=== PATIENT | female | born 1950 | race African-American/Black ===

== ENCOUNTER 2018-11-18 08:38 | Emergency (ER) | payer OTHER ==
--- OUTSIDE RECORDS SUMMARY | 2018-11-18 08:42 | XMS REPORT | Summary of Care ---
Author Author [facility] Organization [facility] Address Unknown Phone Unavailable Encounter ROBERT Kovacs(SCOTT) [id number] Date(s): 11/20/15 - 11/20/[address] [facility] [address], [place], [place] [address]- [phone] Discharge Diagnosis: Bacterial pneumonia Discharge Disposition: Home Attending Physician: Eduardo Pena MD Vital Signs Most recent to 1 2 oldest [Reference Range]: Height 162.56 cm (11/20/15 6:59 PM) Temperature Oral 98.6 DegF 99.0 DegF [96.4-99.1 DegF] (11/20/15 9:16 PM) (11/20/15 6:59 PM) Blood Pressure 116/76 mmHg 140/84 mmHg [90-140/60-90 mmHg] (11/20/15 9:16 PM) (11/20/15 6:59 PM) Respiratory Rate 18 BRMIN 18 BRMIN [14-20 BRMIN] (11/20/15 9:16 PM) (11/20/15 6:59 PM) Peripheral Pulse 68 bpm 76 bpm Rate [60-100 bpm] (11/20/15 9:16 PM) (11/20/15 6:59 PM) Weight 122.727 kg (11/20/15 6:59 PM) Body Mass Index 46.44 m2 (11/20/15 6:59 PM) Problem List No data available for this section Allergies, Adverse Reactions, Alerts Substance Reaction Severity Status codeine Active E-Mycin Active HYDROcodone-pseudoephedri Active ne Ultram Active Medications levalbuterol 1.25 mg, Route: NEB, Drug form: SOLN, ONCE, Dosing Weight 122.727, kg, Priority: STAT, Start date: 11/20/15 19:17:00 CDT, Stop date: 11/20/15 19:17:00 CDT Start Date: 11/20/15 Stop Date: 11/20/15 Status: Completed Levaquin 500 mg oral tablet 500 mg=1 tab, PO, Q24H, X 10 day, # 10 tab, 0 Refill(s) Start Date: 11/20/15 Stop Date: 11/30/15 Status: Ordered Proventil HFA 90 mcg/inh inhalation aerosol with adapter 2 puff, INHALER, QID, PRN for wheezing, # 25 gm, 0 Refill(s) Start Date: 11/20/15 Status: Ordered Rocephin 1 gm, Route: IM, Drug form: PDR/INJ, ONCE, Dosing Weight 122.727, kg, Priority: STAT, Start date: 11/20/15 20:21:00 CDT, Stop date: 11/20/15 20:21:00 CDT Notes: (Same As: Rocephin).Use with 100 mL NS and infuse over 30 min MEDICA TION WASTE Product Size: 1000 mgProduct Wasted: ___ mg Start Date: 11/20/15 Stop Date: 11/20/15 Status: Completed Results VIRAL - SEROLOGY Most recent to 1 oldest [Reference Range]: Influ A [Negative] Negative (11/20/15 7:40 PM) Influ B [Negative] Negative (11/20/15 7:40 PM) Immunizations No data available for this section Procedures No data available for this section Social History Social History Type Response Smoking Status Never smoker; Exposure to Tobacco Smoke None; Cigarette Smoking Last 365 Days No; Reg Smoking Cessation Counseling No Assessment and Plan No data available for this section
--- OUTSIDE RECORDS SUMMARY | 2018-11-18 08:42 | XMS REPORT | Continuity of Care Document ---
Author Author [facility] Address Unknown Phone Unavailable Problems Problem Status Onset Date Classification Date Reported Comments Source Discharge Diagnosis: Bacterial pneumonia 11/20/2015 11/23/2015 [facility] COUGH AND COLD BODY ACHES Active 11/20/2015 [facility] Medications Medication Details Route Status Patient Instructions Ordering Provider Order Date Source 200 ACTUAT Albuterol 0.09 MG/ACTUAT Metered Dose Inhaler [Proventil] 2 puff, INHALER, QID, PRN for wheezing, # 25 gm, 0 Refill(s) Active 11/21/2015 [facility] Levofloxacin 500 MG Oral Tablet [Levaquin] 500 mg=1 tab, PO, Q24H, X 10 day, # 10 tab, 0 Refill(s) Active 11/21/2015 [facility] Rocephin 1 gm, Route: IM, Drug form: PDR/INJ, ONCE, Dosing Weight 122.727, kg, Priority: STAT, Start date: 11/20/15 20:21:00 CDT, Stop date: 11/20/15 20:21:00 CDTNotes: (Same As: Rocephin). Use with 100 mL NS and infuse over 30 min MEDICATION WASTE Product Size: 1000 mg Product Wasted: ___ mg Inactive 11/21/2015 [facility] Levalbuterol 1.25 mg, Route: NEB, Drug form: SOLN, ONCE, Dosing Weight 122.727, kg, Priority: STAT, Start date: 11/20/15 19:17:00 CDT, Stop date: 11/20/15 19:17:00 CDT Inactive 11/21/2015 [facility] Allergies, Adverse Reactions, Alerts Substance Category Reaction Severity Reaction type Status Date Reported Comments Source codeine Assertion Drug allergy Active [facility] E-Mycin Assertion Drug allergy Active [facility] HYDROcodone-pseudoephedrine Assertion Drug allergy Active [facility] Ultram Assertion Drug allergy Active [facility] Immunizations Immunization Date Given Site Status Last Updated Comments Source Results Order Name Results Value Reference Range Date Interpretation Comments Source VIRAL - SEROLOGY Influ B Negative (11/20/15 7:40 PM) Negative 11/21/2015 [facility] VIRAL - SEROLOGY Influ A Negative (11/20/15 7:40 PM) Negative 11/21/2015 [facility] Chest 2 views DX Chest 2 views DX Clinical Indication: Cough and fever Comparison: None FINDINGS: The PA and lateral chest radiographs shows normal lung volumes with right lower lobe infiltrate. There is no effusion or pneumothorax.. The heart is mildly enlarged. The aorta is tortuous and atherosclerotic.. The trachea is midline. There are no clinically significant osseous abnormalities noted. IMPRESSION: Mild right lower lobe infiltrate. . SL: [id number] 11/20/2015 - - Read by: Fransisco Donis MD Dictated Date/time: 11/20/15 20:06 Electronically Signed by: Fransisco Donis MD 11/20/15 20:07 FINAL REPORT [facility] Vital Signs Vital Sign Value Date Comments Source Temperature Oral (F) 98.6 F 11/21/2015 [facility] Heart Rate 68 11/21/2015 [facility] Respitory Rate 18 11/21/2015 [facility] Systolic (mm Hg) 116 11/21/2015 [facility] Diastolic (mm Hg) 76 11/21/2015 [facility] Height 162.56 cm 11/20/2015 [facility] Weight 122.727 11/20/2015 [facility] BMI Calculated 46.44 11/20/2015 [facility] Temperature Oral (F) 99.0 F 11/20/2015 [facility] Heart Rate 76 11/20/2015 [facility] Respitory Rate 18 11/20/2015 [facility] Systolic (mm Hg) 140 11/20/2015 [facility] Diastolic (mm Hg) 84 11/20/2015 [facility] Encounters Location Location Details Encounter Type Encounter Number Reason For Visit Attending Provider ADM Date DC Date Status Source [facility] [id number] Eduardo Pena 11/20/2015 11/21/2015 [facility] Procedures Procedure Code Date Perfomer Comments Source
[2018-11-18] MEDS ORDERED: KETOROLAC TROMETHAMINE 60 MG/2 ML VIAL IM ONE (09:00)
== END 2018-11-18 10:02 | disposition home or self-care (01) ==
LOC: ER 08:38
DX: M79.621 Pain in right upper arm (principal); M54.12 Radiculopathy, cervical region
CPT/HCPCS: 93005; 99282; J1885